=== PATIENT | male | born 1980 | race Caucasian/White ===

== ENCOUNTER → 2022-06-23 | Outpatient (CLI) | payer OTHER, SELFPAY ==
--- NOTE | 2022-06-23 | FLU_PTH ---
PATIENT: DENISE CASTILLO [facility] U#:[id number] AGE/SX: 42/M ROOM: RE06/23/[address]: Dr. Ramona Ramsay MD : 1980 BED: DIS: 06/23/2022 SPEC #: [id number] RECD: 06/23/22 11:52 STATUS: NOEMI REAden #: [id number] JOE: 06/23/22 00:[address]: Ramona Ramsay DEPT: CYTOLOGY RECD BY: Pao Ashton ENTERED: 06/23/22 12:46 SP TYPE: Fluid OTHR DR: Dr. Marcell Guzman MD Tissues: Thyroid gland, NOS Procedures: Special Stain Group II Surgery Specimen Level IV Cytospin Fluid Cytology Other HEADER OPERATION: Left thyroid fine needle aspiration PRE-OP DIAGNOSIS: Abnormal ultrasound thyroid goiter TISSUE SUBMITTED: A ? Left thyroid nodule fluid, B ? Left thyroid nodule x8 slides DIAGNOSIS CYTOLOGY A. Left thyroid nodule fluid, fine needle aspiration (cytospin and cell block): Consistent with benign follicular/colloid nodule ([place] Category II). Adequate for evaluation. See comment. B. Left thyroid nodule, fine needle aspiration (smears): Consistent with benign follicular/colloid nodule ([place] Category II). Adequate for evaluation. See comment. RADHA:sarah 06/24/2022 COMMENT Correlation with clinical, radiologic findings and appropriate follow up are necessary. CYTOLOGY STUDY Slides are reviewed. CYTOLOGY GROSS A - Received is 20 ml of dark red fluid labeled with the patient's name and and designated per the requisition as left thyroid. Submitted for cytology preparation including cell block. B - Received are eight smears labeled with the patient's name and designated per the requisition as left thyroid. Submitted for staining. / sarah 06/23/2022 TC:5 CPT: 35742 x2, 28554
== END | disposition home or self-care (01) ==
LOC: LABSPEC 12:22
PROVIDERS: PCP Family Medicine; Referring Provider Surgery; Visit Provider Surgery
DX: R93.89 Abnormal findings on diagnostic imaging of other specified body structures (principal); E04.9 Nontoxic goiter, unspecified
CPT/HCPCS: 88108; 88161; 88305; 88313